=== PATIENT | male | born 1985 | race Caucasian/White ===

== ENCOUNTER 2017-01-21 16:00 | Outpatient (CLI) | payer BC ==
[2017-01-21 16:49] LABS: #Basophils 0.1 thou/uL (0.0-0.2); #Eosinphils 0.2 thou/uL (0.0-0.7); #Lymphocytes 3.9 thou/uL (1.20-3.40); #Monocytes 1.9 thou/uL (0.11-0.59); #Neutrophils 11.1 thou/uL (1.40-6.50); %Basophils 0.5 % (0.0-1.0); %Lymphocytes 22.9 % (21.0-51.0); Hematocrit 48.6 % (42.0-52.0); White Blood Cell (WBC) Count 17.2 thou/uL (4.8-10.8)
[2017-01-21 17:12] LABS: Anion Gap 11 mmol/L (10-20); BUN (Urea Nitrogen) 18 mg/dL (8.9-20.6); Calc. Creatinine Clearance 0 mL/min (70-130); Calcium 8.7 mg/dL (7.8-10.44); Carbon Dioxide 24 mmol/L (22-29); Chloride 108 mmol/L (98-107); Estimated GFR-MDRD 89
== END 2017-01-21 16:01 | disposition home or self-care (01) ==
LOC: LABBT 16:00
PROVIDERS: ATTEND Surgery
DX: Z01.812 Encounter for preprocedural laboratory examination (principal); K42.9 Umbilical hernia without obstruction or gangrene
CPT/HCPCS: 80048; 85025

== ENCOUNTER 2017-01-30 07:13 | Day surgery (SDC) | payer BC ==
[2017-01-21 16:17] VITALS: BMI 32.3
[2017-01-30] MEDS ORDERED: CEFAZOLIN/Water 2 GM/20 ML SYRINGE ONE (08:02)
[2017-01-30] MEDS ORDERED: Ketorolac Tromethamine 30 MG/ML VIAL ONE (08:02)
[2017-01-30] MEDS ORDERED: Midazolam HCl 2 mg/2 ml Vial ONE (09:12)
[2017-01-30] MEDS ORDERED: Bupivacaine 0.25% HCL 30 ML VIAL ONE (09:30)
[2017-01-30] MEDS ORDERED: Fentanyl 100 MCG/2 ML VIAL ONE (09:32)
[2017-01-30] MEDS ORDERED: Propofol 200 MG/20 ML VIAL ONE (09:42)
[2017-01-30] MEDS ORDERED: Dexamethasone 20 MG/5 ML VIAL ONE (09:42)
[2017-01-30] MEDS ORDERED: Lidocaine 1% PF 5 ML VIAL ONE (09:42)
[2017-01-30] MEDS ORDERED: Ondansetron HCl/PF 4 MG/2 ML Vial ONE (09:42)
--- NOTE | 2017-02-04 16:18 | PDOC.OP ---
Operative Note - Operative Note Operative Note: PROCEDURE: Umbilical hernia repair and excision of abdominal wall lipoma DATE OF PROCEDURE: 01/30/2017 SURGEON: Flower Arana M.D. CASH SPECIALIST: Nelson Camacho MS 3 PREOPERATIVE DIAGNOSES: Umbilical hernia and lipoma of abdominal wall POSTOPERATIVE DIAGNOSIS: Umbilical hernia and lipoma of abdominal wall HISTORY: Patient with an enlarging symptomatic hernia for which he desires repair. He also has a tender subcutaneous nodule of the abdominal wall in the right upper quadrant which is clinically most consistent with lipoma which he would like to have excised under the same anesthesia. PROCEDURE IN DETAIL: After informed consent was obtained and appropriate preoperative antibiotics administered the patient was taken to the operative was placed in supine position and general anesthesia administered. He was prepped and draped in standard sterile fashion and local anesthesia infused to the skin and subcutaneous tissues at the level of the umbilicus. An incision was made and dissection carried down to the hernia sac which was dissected free of the overlying dermis and dissected down to the fascia. The hernia appeared to contain preperitoneal fat only and was able to be reduced through the fascial defect which was quite tiny: under a centimeter in diameter. Due to the very small size of the fascial defect and the non-attenuated normal appearance of the fascia, the decision was made to repair the defect primarily with suture rather than enlarge the defect to place mesh. The fascia was reapproximated with Ethibond suture with excellent technical result. Additional local anesthesia was infused and the subcutaneous tissues reapproximated with 3-0 Monocryl sutures. Skin was closed with 4-0 Monocryl sutures. Attention was then turned to the abdominal wall lipoma. Local anesthesia was infused circumferentially and a transverse incision was made. Dissection was carried down to the lipoma which appeared to be well demarcated and measured 2.5 cm in greatest dimension. This was excised and hemostasis verified. The subcutaneous tissues were reapproximated with 3-0 Monocryl and the skin closed with 4-0 Monocryl and Dermabond dressings placed to both incisions. Once the Dermabond at the umbilical incision was dry a pressure dressing was placed. The patient was extubated and taken to the recovery room in good condition. Estimated blood loss was minimal. There were no complications. Specimen is lipoma.
== END 2017-01-30 12:27 | disposition home or self-care (01) ==
LOC: SDC 07:13
PROVIDERS: ATTEND Surgery
PROC: 0WBF0ZZ Excision of Abdominal Wall, Open Approach (ICD-10-PCS; principal; 2017-01-30)
PROC: 0WQF0ZZ Repair Abdominal Wall, Open Approach (ICD-10-PCS; principal; 2017-01-30)
DX: K42.9 Umbilical hernia without obstruction or gangrene (principal); D17.5 Benign lipomatous neoplasm of intra-abdominal organs; J45.909 Unspecified asthma, uncomplicated
CPT/HCPCS: 88304; J1100; J1885; J2001; J2250; J2405; J2704; J3010; S0020

== ENCOUNTER 2020-07-25 09:28 | Emergency (ER) | payer BC, OTHER ==
[2020-07-25] MEDS ORDERED: Boostrix 0.5 ML (Tdap) VIAL ONE ×2 (09:35→09:37)
[2020-07-25] MEDS ORDERED: Ondansetron PF 4 MG/2 ML Vial ONE (09:45)
[2020-07-25] MEDS ORDERED: Morphine 4 MG/ML VIAL ONE ×2 (10:50→12:26)
[2020-07-25] MEDS ORDERED: Proparacaine 0.5% Opth 15 ML BOT ONE (10:51)
[2020-07-25] MEDS ORDERED: Bupivacaine 0.25% 10 ML VIAL ONE ×2 (10:52→12:41)
[2020-07-25] MEDS ORDERED: Diazepam 5 MG TAB ONE (12:35)
[2020-07-25] MEDS ORDERED: Bupivacaine 0.5% 10 ML VIAL ONE (12:41)
[2020-07-25] MEDS ORDERED: Ketorolac Tromethamine 30 MG/ML VIAL ONE (12:59)
[2020-07-25] MEDS ORDERED: Bacitracin 1 PK ONE (13:32)
[2020-07-25] MEDS ORDERED: Clindamycin/D5W 900 mg/50 ml Premix Bag ONE (13:45)
== END 2020-07-25 14:45 | disposition home or self-care (01) ==
LOC: ERS 09:28
DX: S92.412B Displaced fracture of proximal phalanx of left great toe, initial encounter for open fracture (principal); G25.81 Restless legs syndrome; Z79.899 Other long term (current) drug therapy; W20.8XXA Other cause of strike by thrown, projected or falling object, initial encounter
CPT/HCPCS: 90471; 90715; 96365; 96372; 96375; 96376; J0690; J1885; J2270; J2405; J3490; S0020